=== PATIENT | female | born 1980 | race Caucasian/White ===

== ENCOUNTER 2018-10-07 17:18 | Emergency (ER) | payer SELFPAY ==
[~2018-10-07] VITALS: Ht 167.6 cm; Wt 63.5 kg
[~2018-10-07 17:18] MED LIST: ALBU17AE23 IH; CEPH500C PO; ONDAN4ODT PO; PRD50T PO; PREN1TAB39 PO
--- NOTE | 2018-10-07 17:52 | ED Lower Extremity ---
General Chief Complaint: Lower Extremity Stated Complaint: FELL AND HURT ANKLE Nursing Triage Note: PATIENT STATES THAT AT 1645 SHE MISSED A STEP ON THE STAIRS AND ROLLED HER ANKLE. SHE FELT A SNAP AND HAS NOT BEEN ABLE TO BARE WEIGHT SINCE. Nursing Sepsis Screen: No Definite Risk Source: patient Exam Limitations: no limitations History of Present Illness Date Seen by Provider: Oct 07, 2018 Time Seen by Provider: 17:51 Initial Comments Patient is a 37-year-old female who presents to the emergency room with complaints of right ankle pain. She reports that she was ambulating down the stairs when she missed a step and rolled her ankle. She reports that she felt a snap and has not been able to bear weight due to the pain since. Onset: this evening Pain/Injury Location: right ankle Method of Injury: twisted Modifying Factors: Worse With Movement Allergies and Home Medications Allergies Coded Allergies: Latex (Verified Allergy, Unknown, 12/18/06) Home Medications Albuterol 17 Gm Aerosol, 1 GM IH Q6H Prescribed by: KAYLIE XAVIER MD on 07/14/10614 Cephalexin Monohydrate 500 Mg Capsule, 1 EACH PO TID, (Reported) Ondansetron Hcl 4 Mg Tab, 4 MG PO Q4H FOR NAUSEA AND VOMITING Prescribed by: LENIN SAENZ on 09/13/09 2334 Prednisone 50 Mg Tab, 50 MG PO DAILY Prescribed by: KAYLIE XAVIER MD on 07/14/10614 Vits W-Ca,Fe,Fa(<1MG) 1 Each Tablet, 1 EACH PO DAILY, (Reported) Patient Home Medication List Home Medication List Reviewed: Yes Review of Systems Constitutional: no symptoms reported, see HPI Musculoskeletal: see HPI, joint pain (right ankle pain) Past Innmkge-Aexmyf-Rmuegg Hx Past Med/Social Hx: Reviewed Nursing Past Med/Soc Hx Patient Social History Recent Foreign Travel: No Contact w/Someone Who Travel: No Recent Infectious Disease Expo: No Past Medical History Reproductive Disorders: No Family Medical History Reviewed Nursing Family Hx Physical Exam Vital Signs Vital Signs - First Documented 10/07/18 17:39 Temp 98.6 Pulse 77 Resp 20 B/P (MAP) 115/73 (87) Pulse Ox 97 Capillary Refill : Less Than 3 Seconds Height, Weight, BMI Height: 5'6.00" Weight: 140lbs. 0oz. 63.420897lx; BMI Method:Stated General Appearance: WD/WN, no apparent distress Cardiovascular: normal peripheral pulses, regular rate, rhythm, no edema, no gallop, no JVD, no murmur Respiratory: chest non-tender, lungs clear, normal breath sounds, no respiratory distress, no accessory muscle use Ankles: left ankle non-tender, left ankle normal inspection, left ankle normal range of motion, left ankle no evidence of injury; right ankle pain, right ankle soft tissue tenderness Neurologic/Tendon: normal sensation, normal motor functions, normal tendon functions, responds to pain, no evidence tendon injury, other (normal capillary refill and distal pulses) Neurologic/Psychiatric: alert, normal mood/affect, oriented x 3 Skin: normal color, warm/dry Progress/Results/Core Measures Results/Orders My Orders Orders - BARI KOLB Ankle, Right, 3 Views (10/07/18 17:50) Hydrocodone/Apap 5/325 Tablet (Lortab 5 (10/07/18 18:00) Medications Given in ED Vital Signs/I&O 10/07/18 10/07/18 17:39 18:33 Temp 98.6 98.6 Pulse 77 77 Resp 20 20 B/P (MAP) 115/73 (87) 115/73 (87) Pulse Ox 97 97 Blood Pressure Mean: 87 Progress Progress Note : Time: 18:26 Progress Note I have informed the patient of imaging studies. I have placed the patient in an air stirrup and given crutches for use as needed. She agrees with plans of care. Return precautions were given. Diagnostic Imaging Diagonstic Imaging: Xray Plain Films/CT/US/NM/MRI: ankle Comments NAME: ERICH BARRIOS R MED REC#: [id number] PHYSICIAN: BARI KOLB CC: BARI KOLB; CHRIS RUBIO MD Page 1 of 1 RADIOLOGY REPORT VIA [place], [place] CC: BARI KOLB; CHRIS RUBIO MD Page 1 of 1 RADIOLOGY REPORT NAME: ERICH BARRIOS [facility] REC#: [id number] PT STATUS: REG ER : 1980 PHYSICIAN: BARI KOLB ADMIT DATE: 10/07/18/ER Signed Date of Exam: 10/07/18 ANKLE, RIGHT, 3 VIEWS INDICATION: Right ankle pain. EXAMINATION: AP, oblique and lateral views of the right ankle were obtained. FINDINGS: No fracture or acute bony abnormality is seen. IMPRESSION: Negative right ankle. Dictated by: Dictated on workstation # [id number] Dict: 10/07/181812 Trans: 10/07/181851 Interpreted by: CHRIS RUBIO MD Electronically signed by: CHRIS RUBIO MD 10/07/181851 Reviewed: Reviewed by Me Departure Impression Primary Impression: Right ankle sprain Disposition: HOME, SELF-CARE Condition: Stable/Unchanged Departure-Patient Inst. Decision time for Depature: 18:26 Referrals: BRIE VANCE MD (PCP/Family) Primary Care Physician Patient Instructions: Ankle Sprain (DC) Add. Discharge Instructions: Rest, ice to the sore areas at 20 minute intervals, Lloyd bandage and air stirrup as needed, use the crutches as needed. Ibuprofen and Tylenol for pain relief. Follow-up with primary care provider within 1 week for recheck. Return back to the emergency room for any worsening symptoms or concerns as needed. All discharge instructions reviewed with patient and/or family. Voiced understanding. Work/School Note: Work Release Form Date Seen in the Emergency Department: Oct 07, 2018 Return to Work: Oct 10, 2018 Restrictions: No Restrictions BARI KOLB Oct 07, 2018 17:52
[2018-10-07] MEDS ORDERED: HYDROcodone/APAP 5 MG/325 MG (LORTAB) TAB PO ONE (18:00)
--- NOTE | 2018-10-07 18:17 | Diagnostic Imaging Report ---
INDICATION: Right ankle pain. EXAMINATION: AP, oblique and lateral views of the right ankle were obtained. FINDINGS: No fracture or acute bony abnormality is seen. IMPRESSION: Negative right ankle. Dictated by: Dictated on workstation # [id number]
[2018-10-07 18:33] VITALS: BP 115/73
== END 2018-10-07 18:40 | disposition home or self-care (01) ==
LOC: EDUNIT# 17:18 → ER 17:19
DX: S93.401A Sprain of unspecified ligament of right ankle, initial encounter (principal); Z79.52 Long term (current) use of systemic steroids; Z91.040 Latex allergy status; W10.8XXA Fall (on) (from) other stairs and steps, initial encounter; X50.1XXA Overexertion from prolonged static or awkward postures, initial encounter
CPT/HCPCS: 73610

== ENCOUNTER → 2018-10-31 | Outpatient (CLI) | payer OTHER ==
--- NOTE | 2018-10-31 17:59 | Diagnostic Imaging Report ---
INDICATION: Routine screening. COMPARISON: No prior mammogram is available for comparison. This is a baseline study. 2-D and 3-D bilateral screening mammography was performed with Computer Aided Detection (CAD) system. FINDINGS: Both breasts are heterogeneously dense, limiting the sensitivity of mammography. No dominant mass or malignant-appearing microcalcifications are seen. Axillae are unremarkable. IMPRESSION: No mammographic features suspicious for malignancy are identified. ACR BI-RADS Category 1: Negative. Result letter will be mailed to the patient. Note: At least 10% of breast cancer is not imaged by mammography. Dictated by: Dictated on workstation # [id number]
== END ==
LOC: RAD 15:02
PROVIDERS: ATTEND Family Medicine
DX: Z12.31 Encounter for screening mammogram for malignant neoplasm of breast (principal); Z80.3 Family history of malignant neoplasm of breast
CPT/HCPCS: 77067

== ENCOUNTER 2019-03-18 22:24 | Emergency (ER) | payer OTHER ==
[~2019-03-18] VITALS: Ht 170.2 cm; Wt 59.0 kg
[2019-03-18] MEDS ORDERED: RT-ALBUTEROL/IPRATROPIUM 3 ML (DUONEB) VIAL INH ONE (23:00)
--- NOTE | 2019-03-18 23:26 | ED General ---
General Chief Complaint: Cough/Cold/Flu Symptoms Stated Complaint: SINUS PRESSURE,COUGH Nursing Triage Note: pt amb to room 5, a/ox4. c/o cough, sinus pressure, and middle to upper back pain x 3 weeks. pt seen by PCP (dr. vance) and prescribed augmentin for URI. pt finished prescription on monday. pt states sx are not relieved. Nursing Sepsis Screen: No Definite Risk Source of Information: Patient Exam Limitations: No Limitations History of Present Illness Date Seen by Provider: March 18, 2019 Time Seen by Provider: 22:50 Initial Comments This 38-year-old woman presents to the emergency room with complaints of persistent upper respiratory symptoms for the past 3 weeks. It started with allergy-like symptoms with runny nose and sneezing. She then progressed to sinus congestion and postnasal drip along with a dry cough. She has been feeling short of breath. She takes an albuterol inhaler but states this does not help her much. She finished a 10 day course of Augmentin and a 6 day course of prednisone 2 days ago. She reports subjective fevers at home. She smokes a few cigarettes a day. She is afebrile at present. Air movement is fairly poor on exam but no wheezing is heard. Patient states something similar has happened during the past that resulted in pneumonia. Allergies and Home Medications Allergies Coded Allergies: Latex (Verified Allergy, Unknown, 12/18/06) Home Medications Albuterol 17 Gm Aerosol, 1 GM IH Q6H Prescribed by: KAYLIE XAVIER MD on 07/14/10614 Cephalexin Monohydrate 500 Mg Capsule, 1 EACH PO TID, (Reported) Fluticasone Propionate 9.9 Ml [place].susp, 2 SPRAY NSEACH DAILY 2 SPRAYS PER NOSTRIL DAILY X 2 DAYS THEN 1 SPRAY DAILY Prescribed by: KIMBERLY SZYMANSKI on 03/19/19 0026 Levofloxacin 750 Mg Tablet, 750 MG PO DAILY Prescribed by: KIMBERLY SZYMANSKI on 03/19/19 0021 Ondansetron Hcl 4 Mg Tab, 4 MG PO Q4H FOR NAUSEA AND VOMITING Prescribed by: LENIN SAENZ on 09/13/09 2334 Prednisone 50 Mg Tab, 50 MG PO DAILY Prescribed by: KAYLIE XAVIER MD on 07/14/10614 Prednisone 20 Mg Tab, 20 MG PO DAILY Prescribed by: KIMBERLY SZYMANSKI on 03/19/19 0021 Vits W-Ca,Fe,Fa(<1MG) 1 Each Tablet, 1 EACH PO DAILY, (Reported) Patient Home Medication List Home Medication List Reviewed: Yes Review of Systems Review of Systems Constitutional: see HPI EENTM: see HPI Respiratory: see HPI Cardiovascular: no symptoms reported Gastrointestinal: no symptoms reported Genitourinary: no symptoms reported Musculoskeletal: no symptoms reported Skin: no symptoms reported Psychiatric/Neurological: No Symptoms Reported Hematologic/Lymphatic: No Symptoms Reported Immunological/Allergic: no symptoms reported Past Ksyrykr-Bcaunc-Gtuews Hx Past Med/Social Hx: Reviewed and Corrections made Patient Social History Alcohol Use: Denies Use Recreational Drug Use: No Smoking Status: Current Everyday Smoker Type Used: Cigarettes 2nd Hand Smoke Exposure: Yes Recent Foreign Travel: No Contact w/Someone Who Travel: No Recent Infectious Disease Expo: No Recent Hopitalizations: Yes Past Medical History Surgeries: Yes Cystectomy, Hysterectomy, Tubal Ligation Respiratory: No Cardiac: No Neurological: No : No Reproductive Disorders: No Sexually Transmitted Disease: Yes (chlamydia) Gastrointestinal: No Musculoskeletal: No Endocrine: No Cancer: No Psychosocial: No Blood Disorders: Yes Physical Exam Vital Signs Vital Signs - First Documented 03/18/19 22:37 Temp 98.3 Pulse 78 Resp 18 B/P (MAP) 101/66 (78) Pulse Ox 99 O2 Delivery Room Air Capillary Refill : Less Than 3 Seconds Height, Weight, BMI Height: 5'7.00" Weight: 130lbs. 0oz. 58.146016qo; BMI Method:Stated General Appearance: No Apparent Distress, WD/WN, Thin HEENT: PERRL/EOMI, Normal ENT Inspection, TM Abnormal (L) (erythematous), TM Abnormal (R) (erythematous), Other (cobblestoning in the posterior pharynx) Neck: Normal Inspection Respiratory: Lungs Clear, No Accessory Muscle Use, No Respiratory Distress; No Crackles; Decreased Breath Sounds; No Wheezing; Other (decreased air movement and decreased breath sounds) Cardiovascular: Regular Rate, Rhythm, No Edema, No Murmur Gastrointestinal: Normal Bowel Sounds, Non Tender, Soft Extremity: Normal Inspection, No Pedal Edema Neurologic/Psychiatric: Alert, Oriented x3, No Motor/Sensory Deficits, Normal Mood/Affect, resource management specialist II-XII Norm as Tested Skin: Normal Color, Warm/Dry Progress/Results/Core Measures Suspected Sepsis Recent Fever Within 48 Hours: No Infection Criteria Present: None New/Unexplained Altered Menta: No Sepsis Screen: No Definite Risk SIRS Temperature:98.3 Pulse: 78 Respiratory Rate: 18 Blood Pressure 101 /66 Mean: 78 Results/Orders My Orders Orders - KIMBERLY LEWIS MD Albuterol/Ipra Inhalation Soln (Duoneb I (03/18/19 23:00) Svn Small Volume Nebulizer (03/18/19 22:59) Chest Pa/Lat (2 View) (03/18/19 22:59) Levofloxacin Tablet (Levaquin Tablet) (03/19/19 00:15) Prednisone Tablet (Deltasone Tablet) (03/19/19 00:15) Medications Given in ED Current Medications Medications Dose Ordered Sig/Josemanuel Route Start Time Stop Time Status Last Admin Dose Admin Albuterol/ Ipratropium 3 ml ONCE ONCE INH 03/18/19 23:00 03/18/19 23:01 DC 03/18/19 23:29 3 ML Levofloxacin 750 mg ONCE ONCE PO 03/19/19 00:15 03/19/19 00:16 DC 03/19/19 00:19 750 MG Prednisone 40 mg ONCE ONCE PO 03/19/19 00:15 03/19/19 00:16 DC 03/19/19 00:19 40 MG Vital Signs/I&O 03/18/19 03/18/19 03/18/19 03/19/19 22:37 22:40 23:30 00:26 Temp 98.3 98.3 Pulse 78 87 Resp 18 17 B/P (MAP) 101/66 (78) 107/69 (82) Pulse Ox 99 99 99 O2 Delivery Room Air Room Air Room Air Room Air Capillary Refill : Less Than 3 Seconds Blood Pressure Mean: 78 Progress Note : Progress Note Patient received a DuoNeb treatment which improved her breathing tremendously. She felt better after this. I suspect that she is not getting adequate inhalation of her albuterol at home due to poor air movement on inspiration. We hope to improve this by educating her on use of a chamber spacer. A spacer was provided and dispensed home with the patient. RT provided education. On x- ray there was a consolidation versus atelectasis of the right lower lung. I am concerned about a possible brewing pneumonia versus other pathology. We will treat with another round of antibiotics. Levaquin was selected for broad- spectrum coverage as patient failed Augmentin. A dose of prednisone was also administered in the ER. I discussed x-ray results with the patient and strongly encouraged her to follow-up with Dr. aVnce in about a week. Diagnostic Imaging Diagonstic Imaging: Xray Plain Films/CT/US/NM/MRI: chest Comments Two-view chest x-ray viewed by me. Report not yet available. There is density in the right lower lung that could be atelectasis versus consolidation of some other pathology. Close follow-up is recommended. Departure Impression Primary Impression: Acute bronchitis Qualified Codes: J20.9 - Acute bronchitis, unspecified Additional Impressions: Lung consolidation Bilateral otitis media Qualified Codes: H66.003 - Acute suppurative otitis media without spontaneous rupture of ear drum, bilateral Disposition: 01 HOME, SELF-CARE Condition: Improved Departure-Patient Inst. Decision time for Depature: 00:17 Referrals: BRIE VANCE MD (PCP/Family) Primary Care Physician Patient Instructions: Acute Bronchitis, Pneumonia, Adult (DC) Add. Discharge Instructions: Work toward quitting smoking and quit smoking completely as rapidly as possible. Complete your antibiotic as prescribed. Use the inhaler with the spacer chamber. You may use up to 4 puffs and a 4 hour period of time for shortness of breath, wheezing, or uncontrolled cough. Follow-up with Dr. Vance in approximately one week. There is a consolidation in the right lower lung on your x-ray that needs to be followed. A repeat x-ray should be performed after completion of antibiotics and Dr. Vance should reviewed x-ray reports with you. Return to the emergency room if you have worsening symptoms. Consider a longer term use of a nasal steroid spray like Flonase to help with sinus symptoms. All discharge instructions reviewed with patient and/or family. Voiced understanding. Scripts Fluticasone Propionate (Flonase Allergy Relief) 9.9 Ml [place].susp 2 SPRAY NSEACH DAILY, #1 EACH 2 SPRAYS PER NOSTRIL DAILY X 2 DAYS THEN 1 SPRAY DAILY Prov: KIMBERLY LEWIS MD 03/19/19 Levofloxacin (Levaquin) 750 Mg Tablet 750 MG PO DAILY, #4 TAB Prov: KIMBERLY LEWIS MD 03/19/19 Prednisone (Prednisone) 20 Mg Tab 20 MG PO DAILY, #4 TAB 0 Refills Prov: KIMBERLY LEWIS MD 03/19/19 Work/School Note: Work Release Form Date Seen in the Emergency Department: March 19, 2019 Return to Work: March 20, 2019 Restrictions: No Restrictions Copy Copies To 1: BRIE VANCE MD, JOSHUA T MD March 18, 2019 23:26
--- NOTE | 2019-03-18 23:41 | NUR ---
Report recieved from THOMPSON Hart to assume care of pt @ this time.
[2019-03-19] MEDS ORDERED: predniSONE 20 MG TAB PO ONE (00:15)
[2019-03-19] MEDS ORDERED: LEVOFLOXACIN 500 MG TAB (LEVAQUIN) PO ONE (00:15)
[2019-03-19] MEDS ORDERED: PRD20T PO (00:21)
[2019-03-19] MEDS ORDERED: LEVO750T9 PO (00:21)
[2019-03-19 00:26] VITALS: BP 107/69
[2019-03-19] MEDS ORDERED: FLUT9.9S NSEACH (00:26)
--- NOTE | 2019-03-19 06:28 | Diagnostic Imaging Report ---
INDICATION: Cough and congestion. PA and lateral views of the chest were obtained. Comparison is made with prior examination from 07/14/10. FINDINGS: The heart size, mediastinal configuration, and pulmonary vascularity are within normal limits. There is no pleural effusion, pneumothorax, or pneumonia. The osseous structures are unremarkable. IMPRESSION: No acute cardiopulmonary abnormality. Dictated by: Dictated on workstation # [id number]
== END 2019-03-19 00:27 | disposition home or self-care (01) ==
LOC: EDUNIT# 22:24 → ER 22:26
DX: J20.9 Acute bronchitis, unspecified (principal); J18.1 Lobar pneumonia, unspecified organism; H66.93 Otitis media, unspecified, bilateral; F17.210 Nicotine dependence, cigarettes, uncomplicated; Z91.040 Latex allergy status; Z79.52 Long term (current) use of systemic steroids; Z90.710 Acquired absence of both cervix and uterus; Z98.51 Tubal ligation status; Z90.6 Acquired absence of other parts of urinary tract; Z86.19 Personal history of other infectious and parasitic diseases
CPT/HCPCS: 71046; 94640

== ENCOUNTER → 2019-03-22 | Outpatient (CLI) | payer OTHER ==
[~2019-03-22] MED LIST changes: +FLUT9.9S NSEACH; +LEVO750T9 PO; +PRD20T PO
--- NOTE | 2019-03-22 15:05 | Diagnostic Imaging Report ---
INDICATION: DENSITY LUNG BASE COMPARISON: 03/18/2019. FINDINGS: Frontal and lateral views of the chest demonstrate normal heart size and pulmonary vascularity. The lungs are clear. There are no signs of infiltrate, pleural effusions or pneumothoraces. The visualized osseous structures show no acute abnormalities. IMPRESSION: 1. No acute process. No signs of infiltrates, effusions or pneumothoraces. Dictated by: Dictated on workstation # [id number]
== END ==
LOC: RAD 14:31
PROVIDERS: ATTEND Family Medicine
DX: R91.8 Other nonspecific abnormal finding of lung field (principal)
CPT/HCPCS: 71046

== ENCOUNTER → 2021-07-05 | Outpatient (CLI) | payer BC, OTHER ==
--- NOTE | 2021-07-05 11:24 | Diagnostic Imaging Report ---
INDICATION: Routine screening. Comparison is made to prior mammogram from 10/31/2018. 2-D and 3-D bilateral screening mammography was performed with CAD. Both breasts are heterogeneously dense, limiting the sensitivity of mammography. The parenchymal pattern is stable. No mass or malignant-appearing microcalcifications are seen. Axillae are unremarkable. IMPRESSION: BI-RADS Category 1 No mammographic features suspicious for malignancy are identified. ACR BI-RADS Category 1: Negative. Result letter will be mailed to the patient. Note: At least 10% of breast cancer is not imaged by mammography. Dictated by: Dictated on workstation # [id number]
== END ==
LOC: RAD 09:33
PROVIDERS: ATTEND Family Medicine
DX: Z12.31 Encounter for screening mammogram for malignant neoplasm of breast (principal)
CPT/HCPCS: 77063; 77067